=== PATIENT | female | born 2000 | race Caucasian/White ===

== ENCOUNTER 2023-03-24 15:36 | Emergency (ER) | payer OTHER, BC, SELFPAY ==
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
--- NOTE | ~2023-03-24 | XR_ITS ---
EXAM: XR wrist LT min 3V DATE: 03/24/2023 18:29 HISTORY: post reduction . COMPARISON: None available. FINDINGS/IMPRESSION: Radiographic detail obscured by overlying cast material. Slightly improved alignment of the comminuted distal left radial fracture, with persistent 6 mm later al and 8 mm posterior displacement, mild impaction, and 24 degree posterior angulation. Improved, near-anatomic alignment of the ulnar styloid fracture. Reviewed, dictated and finalized at location K.
[2023-03-24 15:51] VITALS: BP 135/100; PULSE 97; RESP 15; TEMP 36.4; O2SAT 99
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
[2023-03-24] MEDS: LIDOCAINE HCL 1% PF 30 ML VIAL 20 ML INFILTRATE (17:56)
[2023-03-24] MEDS: fentaNYL CITRATE INJ (*CRX) 100 MCG/2 ML VIAL 50 MCG IV PUSH (17:56)
--- NOTE | 2023-03-24 18:38 | PC.NURSE ---
Pt splint applied to left arm.
== END 2023-03-24 19:16 | disposition home or self-care (01) ==
PROVIDERS: Emergency Provider Physician Assistant; PCP Nurse Practitioner Family
DX: S52.552A Other extraarticular fracture of lower end of left radius, initial encounter for closed fracture (principal); S52.612A Displaced fracture of left ulna styloid process, initial encounter for closed fracture; V43.52XA Car driver injured in collision with other type car in traffic accident, initial encounter
CPT/HCPCS: 25605; 25624; 73090; 73100; 73110; 96374; 99285; J3010